=== PATIENT | male | born 1975 | race Two or more races ===

== ENCOUNTER 2018-04-30 09:03 | Outpatient (CLI) | payer OTHER | END 2018-04-30 13:24 | disposition home or self-care (01) | LOC: NUCLEAR 09:03 | DX: E05.90 Thyrotoxicosis, unspecified without thyrotoxic crisis or storm (principal) | CPT/HCPCS: 78012; A9531 ==

== ENCOUNTER 2018-04-30 10:11 | Outpatient (CLI) | payer OTHER | END 2018-04-30 10:22 | disposition home or self-care (01) | LOC: SONOGRAMA 10:11 | DX: E04.8 Other specified nontoxic goiter (principal) ==

== ENCOUNTER 2018-05-01 08:31 | Outpatient (CLI) | payer OTHER | END 2018-05-01 09:27 | disposition home or self-care (01) | LOC: NUCLEAR 08:31 | DX: E05.00 Thyrotoxicosis with diffuse goiter without thyrotoxic crisis or storm (principal) | CPT/HCPCS: 78013; A9512 ==

== ENCOUNTER 2018-05-03 09:25 | Outpatient (CLI) | payer OTHER | END 2018-05-03 09:36 | disposition home or self-care (01) | LOC: NUCLEAR 09:25 | DX: E05.00 Thyrotoxicosis with diffuse goiter without thyrotoxic crisis or storm (principal) | CPT/HCPCS: 79005; A9517 ==